=== PATIENT | female | born 1980 | race Two or more races ===

== ENCOUNTER 2016-09-28 23:16 | Observation (INO) | payer MEDICAID ==
[~2016-09-28 23:16] MED LIST: DEPO SHOT
[2016-09-28] MEDS ORDERED: LACTATED RINGER'S 1,000 ML IV SCH (23:42)
[2016-09-28] MEDS ORDERED: TERBUTALINE SULFATE 1 MG/ML 1ML VIAL SC ONE (23:48)
== END 2016-09-29 02:21 | disposition home or self-care (01) | DRG 566 ==
LOC: LDRP 23:16
PROVIDERS: ADMIT Specialist; ATTEND Specialist
DX: O26.893 Other specified pregnancy related conditions, third trimester (principal); M54.9 Dorsalgia, unspecified; R11.0 Nausea; Z3A.32 32 weeks gestation of pregnancy
CPT/HCPCS: 59025; 76805; 81002; G0378; J3105; 96372

== ENCOUNTER 2018-07-30 09:38 | Emergency (ER) | payer MEDICAID ==
[~2018-07-30] VITALS: Ht 162.6 cm; Wt 71.7 kg
[2018-07-30] MEDS ORDERED: SODIUM CHLORIDE 0.9% 1,000 ML IV ONE ×2 (10:07)
[2018-07-30] MEDS ORDERED: IBUPROFEN 800 MG TAB PO ONE (12:00)
[2018-07-30 12:48] VITALS: BP 116/60
== END 2018-07-30 13:26 | disposition home or self-care (01) ==
LOC: ER 09:52
DX: R53.1 Weakness (principal); R42 Dizziness and giddiness; R06.02 Shortness of breath; Z48.01 Encounter for change or removal of surgical wound dressing
CPT/HCPCS: 94761; 96360; 96361; 99283; J7030

== ENCOUNTER 2018-08-03 10:05 | Emergency (ER) | payer MEDICAID ==
[~2018-08-03] VITALS: Ht 162.6 cm; Wt 81.3 kg
[2018-08-03 11:44] VITALS: BP 111/69
== END 2018-08-03 11:45 | disposition home or self-care (01) ==
LOC: ER 10:05
DX: S31.109D Unspecified open wound of abdominal wall, unspecified quadrant without penetration into peritoneal cavity, subsequent encounter (principal); X58.XXXD Exposure to other specified factors, subsequent encounter; Z48.01 Encounter for change or removal of surgical wound dressing

== ENCOUNTER 2022-02-08 03:42 | Emergency (ER) | payer MEDICAID ==
[~2022-02-08] VITALS: Ht 162.6 cm; Wt 94.1 kg
[2022-02-08 04:33] VITALS: BP 147/85
[2022-02-08] MEDS ORDERED: IOHEXOL 300 MG/ML 100ML BOTTLE IJ ONE (05:50)
[2022-02-08 07:32] LABS: Basophils # (auto) 0.1 10 ^3/uL (0-0.2); Basophils % (auto) 1.1 % (0.0-2.0); Eosinophils # (auto) 0.1 10 ^3/uL (0-0.8); Eosinophils % (auto) 1.9 % (0.0-7.0); Hematocrit 38.6 % (36.0-46.0); Hemoglobin 12.2 g/dL (12.2-16.2); Lymphocytes # (auto) 2.2 10 ^3/uL (0.4-5.4); Lymphocytes % (auto) 33.1 % (10.0-50.0); Mean Corpuscular Hemoglobin 27.2 pg (28.0-32.0); Mean Corpuscular Hgb Conc. 31.7 g/dL (32.0-36.0); Mean Corpuscular Volume 85.6 fL (80.0-100.0); Monocytes # (auto) 0.5 10 ^3/uL (0-1.3); Monocytes % (auto) 7.4 % (0.0-12.0); Neutrophils # (auto) 3.7 10 ^3/uL (1.6-8.6); Neutrophils % (auto) 56.5 % (37.0-80.0); Nucleated Red Blood Cells % 0.1 %; Red Cell Distribution Width 15.4 % (11.8-14.3); White Blood Cell 6.6 10^3/uL (4.4-10.8)
[2022-02-08 07:41] LABS: BUN/Creatinine Ratio 17.9; Calcium 8.9 mg/dL (8.5-10.1); Potassium 4.1 mmol/L (3.5-5.1)
== END 2022-02-08 10:03 | disposition home or self-care (01) ==
LOC: ER 03:42
DX: N83.202 Unspecified ovarian cyst, left side (principal); K42.9 Umbilical hernia without obstruction or gangrene
CPT/HCPCS: 36415; 74177; 80048; 85025; 99285; Q9967

== ENCOUNTER 2023-09-08 20:16 | Inpatient (IN) | payer MEDICAID ==
[~2023-09-08] VITALS: Ht 162.6 cm; Wt 97.3 kg
[2023-09-08 21:35] LABS: Basophils # (auto) 0 10 ^3/uL (0-0.2); Basophils % (auto) 0.4 % (0.0-2.0); Eosinophils # (auto) 0 10 ^3/uL (0-0.8); Eosinophils % (auto) 0.1 % (0.0-7.0); Hemoglobin 11.6 g/dL (12.2-16.2); Lymphocytes # (auto) 0.3 10 ^3/uL (0.4-5.4); Lymphocytes % (auto) 6.1 % (10.0-50.0); Mean Corpuscular Volume 81.8 fL (80.0-100.0); Monocytes # (auto) 0.5 10 ^3/uL (0-1.3); Monocytes % (auto) 11.7 % (0.0-12.0); Neutrophils # (auto) 3.8 10 ^3/uL (1.6-8.6); Neutrophils % (auto) 81.7 % (37.0-80.0); Nucleated Red Blood Cells % 0.1 %; Red Blood Cells 4.28 10^6/uL (4.0-5.20); Red Cell Distribution Width 15.9 % (11.8-14.3); White Blood Cell 4.7 10^3/uL (4.4-10.8)
[2023-09-08 21:52] LABS: Alanine Aminotransferase 27 U/L (7-40); Albumin 4.4 g/dL (3.2-4.8); Alkaline Phosphatase 48 U/L (46-116); Anion Gap 12 (5-15); Aspartate Aminotransferase 19 U/L (13-40); Blood Urea Nitrogen 9 mg/dL (9-23); Calcium 9.3 mg/dL (8.5-10.1); Carbon Dioxide 18 mmol/L (20-30); Chloride 104 mmol/L (98-107); Glucose 101 mg/dL (74-106); Potassium 3.4 mmol/L (3.5-5.1); Sodium 134 mmol/L (136-145)
[2023-09-08 21:53] LABS: Bilirubin, Total 0.3 mg/dL (0.2-1.0); Total Protein 7.3 g/dL (5.7-8.2)
[2023-09-08 22:01] LABS: CRP High Sensitivity 2.18 mg/dL (<1.0)
[2023-09-08 22:45] LABS: Urine Bacteria FEW /hpf (None Seen); Urine Blood 1+ /uL (Negative); Urine Clarity Clear (Clear); Urine Color Light-Yellow (Yellow); Urine Protein, UAD Negative (Negative); Urine Specific Gravity 1.046 (1.001-1.035); Urine Urobilinogen Normal (Negative); Urine WBC 2 /hpf (0 - 5)
[2023-09-09] VITALS (8 sets, daily range): BP systolic 99–112; BP diastolic 54–79; PULSE 64–80; RESP 12–18; TEMP 97.8–98.1; O2SAT 95–98
[2023-09-09] MEDS ORDERED: ACETAMINOPHEN 325 MG TAB PO PRN (03:00)
[2023-09-09] MEDS: HYDROmorphone HCL 2 MG/ML VL/or syr IV ONE (03:13)
[2023-09-09] MEDS: SODIUM CHLORIDE 0.9% 500 ML IV ONE (03:13)
[2023-09-09] MEDS: HYDROcodone-ACET 5/325MG TAB PO PRN (03:14)
[2023-09-09] MEDS: ONDANSETRON HCL 4 MG/2 ML VIAL IV PRN (03:14)
[2023-09-09] MEDS: IOHEXOL 300 MG/ML 100ML BOTTLE IJ ONE (03:15)
[2023-09-09] MEDS: POTASSIUM CHL 20 Meq TABLET PO ONE (03:15)
[2023-09-09 04:37] LABS: Basophils # (auto) 0 10 ^3/uL (0-0.2); Basophils % (auto) 0.6 % (0.0-2.0); Eosinophils # (auto) 0 10 ^3/uL (0-0.8); Eosinophils % (auto) 0.1 % (0.0-7.0); Hemoglobin 11.5 g/dL (12.2-16.2); Lymphocytes # (auto) 0.6 10 ^3/uL (0.4-5.4); Lymphocytes % (auto) 15.3 % (10.0-50.0); Mean Corpuscular Hemoglobin 27.3 pg (28.0-32.0); Mean Corpuscular Hgb Conc. 32.8 g/dL (32.0-36.0); Mean Corpuscular Volume 83.2 fL (80.0-100.0); Monocytes # (auto) 0.5 10 ^3/uL (0-1.3); Monocytes % (auto) 13.8 % (0.0-12.0); Neutrophils # (auto) 2.6 10 ^3/uL (1.6-8.6); Neutrophils % (auto) 70.2 % (37.0-80.0); Nucleated Red Blood Cells % 0.1 %; Red Blood Cells 4.21 10^6/uL (4.0-5.20); Red Cell Distribution Width 16.1 % (11.8-14.3); White Blood Cell 3.7 10^3/uL (4.4-10.8)
[2023-09-09 04:44] LABS: Chloride 104 mmol/L (98-107); Potassium 3.4 mmol/L (3.5-5.1); Sodium 134 mmol/L (136-145)
[2023-09-09 04:45] LABS: Anion Gap 14 (5-15); Calcium 9.2 mg/dL (8.7-10.4); Carbon Dioxide 16 mmol/L (20-30)
[2023-09-09 04:50] LABS: BUN/Creatinine Ratio 10.4 (10.0-20.0); Blood Urea Nitrogen 7 mg/dL (9-23); Glucose 92 mg/dL (74-106)
[2023-09-09 07:59] LABS: INR 1.08 (0.9-1.15); Partial Thromboplastin Time 30.8 SEC (24.5-34.5); Prothrombin Time 11.4 sec (9.3-11.8)
[2023-09-09] MEDS: PANTOPRAZOLE 40 MG/10 ML VIAL INJ IV ONE (08:00)
[2023-09-09 08:49] LABS: Erythrocyte Sedimentation Rate 15 mm/hr (0-20)
[2023-09-09] MEDS ORDERED: CLOB0.055 EX (10:21)
[2023-09-09] MEDS: DOXYCYCLINE 100MG/250ML 250 ML IV ONE (10:30)
[2023-09-09] MEDS: POTASSIUM EFFERVESENT TAB 25 MEQ PO ONE (12:36)
[2023-09-09] MEDS: PIPERACILLIN-TAZOB 3.375GM 100 ML IV ONE (12:37)
[2023-09-09] MEDS: ENOXAPARIN SOD 40 MG/0.4 ML SYRINGE SC SCH (12:37)
[2023-09-09 13:57] LABS: Amphetamine Screen, Urine Neg (NEGATIVE)
[2023-09-09 13:58] LABS: Barbiturate Scree,Urine Neg (NEGATIVE); Benzodiazephine Screen, Urine Neg (NEGATIVE); Cannabinoid Screen, Urine Neg (NEGATIVE); Cocaine Screen, Urine Neg (NEGATIVE); Opiate Scree,Urine Neg (NEGATIVE); Phencyclidine Screen, Urine Neg (NEGATIVE)
[2023-09-09] MEDS ORDERED: PIPERACILLIN-TAZOB 3.375GM 100 ML IV SCH (14:00)
[2023-09-09] MEDS: SOD CHL 0.9%/ KCL 20MEQ 1,000 ML IV SCH (18:01)
[2023-09-09] MEDS: PIPERACILLIN-TAZOB 3.375GM 100 ML IV SCH (19:43)
[2023-09-09] MEDS: DOXYCYCLINE 100MG/250ML 250 ML IV SCH (22:06)
[2023-09-10] VITALS (8 sets, daily range): BP systolic 111–127; BP diastolic 66–80; PULSE 61–85; RESP 16–18; TEMP 97.1–98.5; O2SAT 95–98
[2023-09-10] MEDS: IBUPROFEN 600 MG TAB PO ONE (05:28)
[2023-09-10 06:49] LABS: Basophils # (auto) 0 10 ^3/uL (0-0.2); Eosinophils # (auto) 0 10 ^3/uL (0-0.8); Eosinophils % (auto) 0.4 % (0.0-7.0); Hematocrit 36.7 % (36.0-46.0); Hemoglobin 11.9 g/dL (12.2-16.2); Lymphocytes # (auto) 0.9 10 ^3/uL (0.4-5.4); Lymphocytes % (auto) 19.9 % (10.0-50.0); Mean Corpuscular Hemoglobin 27.2 pg (28.0-32.0); Mean Corpuscular Hgb Conc. 32.4 g/dL (32.0-36.0); Mean Corpuscular Volume 83.8 fL (80.0-100.0); Monocytes # (auto) 0.4 10 ^3/uL (0-1.3); Monocytes % (auto) 8.8 % (0.0-12.0); Neutrophils # (auto) 3.2 10 ^3/uL (1.6-8.6); Neutrophils % (auto) 69.9 % (37.0-80.0); Nucleated Red Blood Cells % 0.1 %; Red Blood Cells 4.37 10^6/uL (4.0-5.20); Red Cell Distribution Width 16.2 % (11.8-14.3); White Blood Cell 4.6 10^3/uL (4.4-10.8)
[2023-09-10 07:01] LABS: Chloride 106 mmol/L (98-107); Potassium 3.9 mmol/L (3.5-5.1); Sodium 137 mmol/L (136-145)
[2023-09-10 07:02] LABS: Anion Gap 6 (5-15); Carbon Dioxide 25 mmol/L (20-30)
[2023-09-10 07:03] LABS: Calcium 9.2 mg/dL (8.5-10.1)
[2023-09-10 07:07] LABS: BUN/Creatinine Ratio 9.3 (10.0-20.0); Blood Urea Nitrogen 7 mg/dL (9-23); Glucose 105 mg/dL (74-106)
[2023-09-10] MEDS: PANTOPRAZOLE 40 MG/10 ML VIAL INJ IV SCH (12:16)
[2023-09-10] MEDS ORDERED: FLUTICASONE PROP NASAL SPR 0.05 % (50MCG) 16GM EACHNOSTRI ONE (13:30)
[2023-09-10] MEDS: AMOXICILLIN/CLAVUL 875 MG TAB PO ONE (14:30)
[2023-09-10] MEDS ORDERED: DOX100T PO (18:13)
[2023-09-10] MEDS ORDERED: IBUP1TAB4 PO (18:13)
[2023-09-10] MEDS ORDERED: FLUT50SP EACHNOSTRI (18:13)
[2023-09-10] MEDS ORDERED: ACET-1882 PO (18:13)
[2023-09-10] MEDS ORDERED: AUG875T PO (18:13)
[2023-09-10] MEDS ORDERED: TAMS0.4C36 PO (19:54)
[2023-09-10] MEDS: IBUPROFEN 400 MG TAB PO PRN (19:59)
[2023-09-10] MEDS: FLUTICASONE PROP NASAL SPR 0.05 % (50MCG) 16GM EACHNOSTRI SCH (21:35)
[2023-09-10] MEDS ORDERED: AMOXICILLIN/CLAVUL 875 MG TAB PO SCH (22:00)
[2023-09-10 23:06] LABS: Chlamydia Trachomatis, NAA Negative (Negative); Neisseria gonorrhoeae, NAA Negative (Negative)
[2023-09-11 01:00] VITALS: BP 131/68; PULSE 64; RESP 19; TEMP 97.6; O2SAT 95
[2023-09-11] MEDS: HYDROcodone-ACET 5/325MG TAB PO ONE (01:58)
[2023-09-11 08:00] VITALS: RESP 18; O2SAT 96
[2023-09-11 08:20] VITALS: BP 98/53; PULSE 59; RESP 16; TEMP 97.5; O2SAT 96
[2023-09-11 09:12] LABS: Hepatitis B Surface Antigen Negative (Negative)
[2023-09-11 09:32] LABS: Hepatitis A Ab IgM Negative
[2023-09-11 09:33] LABS: Hepatitis B Core IgM Negative; Hepatitis C Antibody Negative (Negative)
== END 2023-09-11 11:50 | disposition home or self-care (01) | DRG 249 ==
LOC: ER 20:16 → OVERFLOW 09-09 03:02 → EAST 09-09 09:42
PROVIDERS: ADMIT Internal Medicine; ATTEND Emergency Medicine
DX: A09 Infectious gastroenteritis and colitis, unspecified (principal); E66.01 Morbid (severe) obesity due to excess calories; E87.6 Hypokalemia; N83.02 Follicular cyst of left ovary; K57.30 Diverticulosis of large intestine without perforation or abscess without bleeding; N20.0 Calculus of kidney; Z98.891 History of uterine scar from previous surgery; Z82.49 Family history of ischemic heart disease and other diseases of the circulatory system; Z79.1 Long term (current) use of non-steroidal anti-inflammatories (NSAID); Z79.899 Other long term (current) drug therapy; Z68.36 Body mass index [BMI] 36.0-36.9, adult
CPT/HCPCS: 36415; 74177; 76830; 76856; 80048; 80053; 80074; 80307; 81001; 82306; 82378; 82607; 83036; 83605; 83735; 84443; 84702; 85025; 85610; 85652; 85730; 86141; 86304; 86703; 96361; 96374; 96375; 99291; G0378; J2405; J2470; J2543; J3490

== ENCOUNTER 2023-09-18 18:52 | Emergency (ER) | payer MEDICAID ==
[~2023-09-18] VITALS: Ht 162.6 cm; Wt 92.7 kg
[~2023-09-18 18:52] MED LIST changes: +ACET-1882 PO; +AUG875T PO; +CLOB0.055 EX; +DOX100T PO; +FLUT50SP EACHNOSTRI; +IBUP1TAB4 PO; +TAMS0.4C36 PO
[2023-09-18 20:38] LABS: Urine Amorphous Crystal FEW /hpf (None Seen); Urine Bacteria FEW /hpf (None Seen); Urine Blood Negative /uL (Negative); Urine Clarity Clear (Clear); Urine Color Light-Yellow (Yellow); Urine Mucus FEW (None Seen); Urine Protein, UAD Negative (Negative); Urine Specific Gravity 1.014 (1.001-1.035); Urine Urobilinogen Normal (Negative); Urine WBC 1 /hpf (0 - 5)
[2023-09-18 20:57] LABS: Basophils # (auto) 0.1 10 ^3/uL (0-0.2); Basophils % (auto) 1.1 % (0.0-2.0); Eosinophils # (auto) 0 10 ^3/uL (0-0.8); Eosinophils % (auto) 0.4 % (0.0-7.0); Hematocrit 39.2 % (36.0-46.0); Hemoglobin 12.9 g/dL (12.2-16.2); Lymphocytes # (auto) 1.6 10 ^3/uL (0.4-5.4); Lymphocytes % (auto) 17.4 % (10.0-50.0); Mean Corpuscular Hemoglobin 26.9 pg (28.0-32.0); Mean Corpuscular Hgb Conc. 32.8 g/dL (32.0-36.0); Mean Corpuscular Volume 81.8 fL (80.0-100.0); Monocytes # (auto) 0.8 10 ^3/uL (0-1.3); Neutrophils # (auto) 6.9 10 ^3/uL (1.6-8.6); Neutrophils % (auto) 73.1 % (37.0-80.0); Red Blood Cells 4.79 10^6/uL (4.0-5.20); Red Cell Distribution Width 15.6 % (11.8-14.3); White Blood Cell 9.4 10^3/uL (4.4-10.8)
[2023-09-18] MEDS: LIDOCAINE VISCOUS 2% 15ML UD MT ONE (21:00)
[2023-09-18] MEDS: MAALOX PLUS or MAALOX 30 ML PO ONE (21:01)
[2023-09-18] MEDS: DONNATAL 5ml ORAL Elix (BELLADONNA ALK-PHENOBARB) PO ONE (21:02)
[2023-09-18] MEDS: FLUCONAZOLE 100 MG TAB PO ONE (21:05)
[2023-09-18 21:21] LABS: Alanine Aminotransferase 25 U/L (7-40); Albumin 4.7 g/dL (3.2-4.8); Alkaline Phosphatase 53 U/L (46-116); Anion Gap 7 (5-15); Aspartate Aminotransferase 13 U/L (13-40); BUN/Creatinine Ratio 13.7 (10.0-20.0); Bilirubin, Total 0.3 mg/dL (0.2-1.0); Blood Urea Nitrogen 10 mg/dL (9-23); Calcium 10.1 mg/dL (8.7-10.4); Carbon Dioxide 24 mmol/L (20-30); Chloride 106 mmol/L (98-107); Glucose 89 mg/dL (74-106); Lipase 43 U/L (12-53); Potassium 3.8 mmol/L (3.5-5.1); Sodium 137 mmol/L (136-145); Total Protein 7.9 g/dL (5.7-8.2)
[2023-09-18 22:03] VITALS: BP 116/86; PULSE 80; RESP 18; TEMP 98.3; O2SAT 96
== END 2023-09-18 22:04 | disposition home or self-care (01) ==
LOC: ER 18:52
DX: B37.0 Candidal stomatitis (principal); R10.10 Upper abdominal pain, unspecified; Z79.899 Other long term (current) drug therapy; Z79.1 Long term (current) use of non-steroidal anti-inflammatories (NSAID); Z98.890 Other specified postprocedural states
CPT/HCPCS: 36415; 80053; 81001; 81025; 83690; 85025